=== PATIENT | female | born 1935 | race Caucasian/White ===

== ENCOUNTER 2022-02-17 10:19 | Day surgery (SDC) | payer MEDICARE ==
[2022-02-12 11:44] LABS: BASOPHILS # (AUTO) 0.1 X10'3 (0-0.2); BASOPHILS % (AUTO) 0.5 % (0-1); EOSINOPHILS # (AUTO) 0.2 X10'3 (0-0.9); EOSINOPHILS % (AUTO) 2.2 % (0-6); HEMATOCRIT 34.8 % (35.0-45.0); HEMOGLOBIN 11.6 g/dl (12.0-16.0); LYMPHOCYTES # (AUTO) 0.9 X10'3 (1.1-4.8); LYMPHOCYTES % (AUTO) 8.6 % (21-51); MEAN CORPUSCULAR HEMOGLOBIN 28.7 PG (27.0-31.0); MEAN CORPUSCULAR HGB CONC 33.2 g/dL (33.0-36.5); MEAN CORPUSCULAR VOLUME 86.4 FL (78-98); MEAN PLATELET VOLUME 8.1 FL (7.4-10.4); MONOCYTES # (AUTO) 0.8 X10'3 (0-0.9); MONOCYTES % (AUTO) 8.4 % (2-12); NEUTROPHILS # (AUTO) 7.9 X10'3 (1.8-7.7); NEUTROPHILS % (AUTO) 80.3 % (42-75); PLATELET COUNT 257 X10'3 (140-440); RED BLOOD COUNT 4.03 X10'6 (4.20-5.60); RED CELL DISTRIBUTION WIDTH 15.4 % (11.5-14.5); WHITE BLOOD COUNT 9.9 X10'3 (4.5-11.0)
[2022-02-12 12:03] LABS: ALBUMIN 3.3 G/DL (3.4-5.0); ANION GAP 12 (8-16); BLOOD UREA NITROGEN 19 MG/DL (7-18); BUN/CREATININE RATIO 26.8 (6.6-38.0); CALCIUM 8.8 MG/DL (8.5-10.1); CHLORIDE 101 MMOL/L (99-107); CHOL/HDL RATIO 3.1 (0.00-4.99); CHOLESTEROL 147 MG/DL (0-200); CREATININE 0.71 MG/DL (0.40-0.90); GLUCOSE 124 MG/DL (70-104); HDL CHOLESTEROL 48 MG/DL (35-60); LDL CHOLESTEROL 80 MG/DL (50-100); POTASSIUM 4.2 MMOL/L (3.5-5.1); SODIUM 137 MMOL/L (135-145); TOTAL CARBON DIOXIDE 24.3 MMOL/L (24-32); TRIGLYCERIDES 140 MG/DL (20-135); eGFR 78 ML/MIN
[2022-02-12 12:20] LABS: APTT 34 SECONDS (22-32)
[~2022-02-17] VITALS: Ht 162.6 cm; Wt 69.5 kg
[2022-02-17] VITALS (10 sets, daily range): BP systolic 103–141; BP diastolic 44–98
[~2022-02-17 10:19] MED LIST: ALPR1TAB7 PO; CALC-496 PO; CARV-50 PO; CEFU500T66 PO; CHOL10002 PO; CYAN500T71 PO; FERR325T7 PO; LEVO75TA7 PO; LISI20TA28 PO; LOSA50TA64 PO; LOVA40TA2 PO; MAGN500C4 PO; MULT-620 PO; OLOP2.5D12 EACHEYE; OMEG1CAP13 PO; OMEP20CA4 PO; UBID100C16 PO
[2022-02-17] MEDS ORDERED: diphenhydrAMINE 25mg capsule PO PRN (10:55)
[2022-02-17] MEDS ORDERED: LORazepam 0.5 MG tablet PO PRN (10:55)
[2022-02-17] MEDS ORDERED: normal saline 1,000 ML IV SCH (10:55)
[2022-02-17] MEDS ORDERED: FERR236T3 PO (11:42)
[2022-02-17] MEDS ORDERED: AMLO5TAB16 PO (11:42)
[2022-02-17] MEDS ORDERED: MAGN400C PO (11:42)
[2022-02-17] MEDS ORDERED: POTA-207 PO (11:42)
[2022-02-17] MEDS ORDERED: RIVA20TA PO (11:42)
[2022-02-17] MEDS ORDERED: CINN500C16 PO (11:42)
[2022-02-17] MEDS ORDERED: GLIM2TAB6 PO (11:42)
[2022-02-17] MEDS ORDERED: CALC500T63 PO (11:42)
[2022-02-17] MEDS ORDERED: FURO40TA4 PO (11:42)
[2022-02-17] MEDS ORDERED: LOSA100T57 PO (11:42)
[2022-02-17] MEDS ORDERED: ASCO500C17 PO (11:42)
[2022-02-17] MEDS ORDERED: nitroGLYCERIN-Tridil 50MG/D5W 250 ML IV ONE (11:46)
[2022-02-17] MEDS ORDERED: LIDOcaine 1% 30ml preserv. free vial ONE (11:47)
[2022-02-17] MEDS ORDERED: fentaNYL/PF 50MCG/1 ML 2ML syringe ONE (11:47)
[2022-02-17] MEDS ORDERED: verapamil 2.5 mg/ml inj IV ONE (11:47)
[2022-02-17] MEDS ORDERED: midazolam 1 mg/ML 2ml injection ONE (11:47)
[2022-02-17] MEDS ORDERED: heparin 1,000unit/ml 10ml vial 10 ML ONE ×2 (11:48→13:09)
[2022-02-17] MEDS ORDERED: iohexol 350MG/ML 100ml bottle IV ONE ×2 (11:48→13:09)
[2022-02-17] MEDS ORDERED: aspirin 325mg tablet ONE (13:08)
[2022-02-17] MEDS ORDERED: clopidogrel 300mg tablet ONE (13:08)
[2022-02-17 13:43] LABS: ISTAT HGB ART 11.2 g/dl (12.0-16.0); ISTAT Hct ART 33 %PCV (35-48); ISTAT O2 SATURATION ARTERIAL 88 % (95-98); ISTAT SOURCE ART
[2022-02-17] MEDS ORDERED: HYDROcodone/acetaminophen 10/325mg tab PO PRN (15:00)
[2022-02-17] MEDS ORDERED: HYDROcodone/acetaminophen 5mg/325mg tablet PO PRN (15:00)
[2022-02-17 15:51] LABS: ISTAT Hct MIX 35 %PCV (35-48); ISTAT O2 SATURATION MIX VENOUS 56 % (60-80); ISTAT SOURCE VEN
== END 2022-02-17 18:10 | disposition home or self-care (01) ==
LOC: SSTAY O 10:19
PROVIDERS: ATTEND Internal Medicine Interventional Cardiology
DX: I25.10 Atherosclerotic heart disease of native coronary artery without angina pectoris (principal); I27.20 Pulmonary hypertension, unspecified; I25.2 Old myocardial infarction; I08.3 Combined rheumatic disorders of mitral, aortic and tricuspid valves; I49.5 Sick sinus syndrome; I10 Essential (primary) hypertension; E78.5 Hyperlipidemia, unspecified; I48.91 Unspecified atrial fibrillation; Z95.0 Presence of cardiac pacemaker; Z79.899 Other long term (current) drug therapy; Z98.890 Other specified postprocedural states
CPT/HCPCS: 36415; 80048; 80061; 82803; 82948; 85014; 85025; 85610; 85730; 93005; 93460; A6258; C1725; C1751; C1760; C1769; C1874; C1894; C9600; J1644; J2250; J3010; J3490; J7030; Q0163; Q9967; 99152; 99153; A4620; A5120; A6402; A6449

== ENCOUNTER 2022-07-24 08:43 | Day surgery (SDC) | payer MEDICARE ==
[~2022-07-24] VITALS: Ht 162.6 cm; Wt 68.1 kg
[~2022-07-24 08:43] MED LIST changes: -ALPR1TAB7 PO; +AMLO5TAB16 PO; +ASCO500C17 PO; -CALC-496 PO; +CALC500T63 PO; -CEFU500T66 PO; -CHOL10002 PO; +CINN500C16 PO; -CYAN500T71 PO; +FERR236T3 PO; -FERR325T7 PO; +FURO40TA4 PO; +GLIM2TAB6 PO; -LISI20TA28 PO; +LOSA100T57 PO; -LOSA50TA64 PO; -LOVA40TA2 PO; +MAGN400C PO; -MAGN500C4 PO; -MULT-620 PO; -OLOP2.5D12 EACHEYE; -OMEG1CAP13 PO; +POTA-207 PO; +RIVA20TA PO; -UBID100C16 PO
[2022-07-24 09:00] VITALS: BP 135/77
[2022-07-24] MEDS ORDERED: NITR100C11 (09:09)
[2022-07-24] MEDS ORDERED: CLIN60SO2 TOP (09:09)
[2022-07-24] MEDS ORDERED: ATOR20TA66 (09:09)
[2022-07-24] MEDS ORDERED: ATRNS (09:09)
[2022-07-24] MEDS ORDERED: CLOP75TA34 (09:09)
[2022-07-24] MEDS ORDERED: CHOL200012 PO (09:10)
[2022-07-24] MEDS ORDERED: FENTANYL CITRATE/PF 50 MCG/1 ML VIAL ONE (09:22)
[2022-07-24] MEDS ORDERED: MIDAZolam 1 MG/ML 5ML VIAL ONE (09:22)
[2022-07-24] MEDS ORDERED: diphenhydrAMINE 50 mg/ml inj ONE (09:22)
[2022-07-24] MEDS ORDERED: LIDOcaine Viscous 15ml cup ONE (09:33)
[2022-07-24 10:31] VITALS: BP 91/47
[2022-07-24 10:41] VITALS: BP 145/86
[2022-07-24 10:51] VITALS: BP 148/68
[2022-07-24 11:01] VITALS: BP 103/69
== END 2022-07-24 11:30 | disposition home or self-care (01) ==
LOC: GI LAB 08:43
PROVIDERS: ATTEND Internal Medicine Gastroenterology
DX: D50.9 Iron deficiency anemia, unspecified (principal); C18.7 Malignant neoplasm of sigmoid colon; K44.9 Diaphragmatic hernia without obstruction or gangrene; K31.7 Polyp of stomach and duodenum; K29.70 Gastritis, unspecified, without bleeding; K57.30 Diverticulosis of large intestine without perforation or abscess without bleeding; K63.89 Other specified diseases of intestine; K64.2 Third degree hemorrhoids
CPT/HCPCS: 43239; 45380; 45381; 99153; G0500; J2250; J3010; J7030; Z7512; 88305; 88342; 99152; J1200